=== PATIENT | male | born 1970 | race Caucasian/White ===

== ENCOUNTER 2019-04-05 14:15 | Inpatient (IN) | payer OTHER ==
[~2019-04-05 14:15] MED LIST: Iopamidol-370 76% 500 ML 1 ML ONE
[2019-04-05 14:44] LABS: #Basophils 0.1 thou/uL (0.0-0.2); #Eosinphils 0.1 thou/uL (0.0-0.7); #Lymphocytes 1.4 thou/uL (1.20-3.40); #Monocytes 0.8 thou/uL (0.11-0.59); #Neutrophils 14.2 thou/uL (1.40-6.50); %Basophils 0.4 % (0.0-1.0); %Eosinophils 0.4 % (0.0-10.0); %Lymphocytes 8.2 % (21.0-51.0); %Monocytes 4.7 % (0.0-10.0); %Neutrophils 86.3 % (42.0-75.0); Hemoglobin 16.5 g/dL (14.0-18.0); Mean Corpuscular HGB CONC 33.8 g/dL (32.0-36.0); Mean Corpuscular Hemoglobin 34.1 pg (27.0-31.0); Mean Platelet Volume 8.2 fL (7.4-10.4); Platelet Count 257 thou/uL (130-400); RBC Distribution Width 12.4 % (11.5-14.5); Red Blood Cell (RBC) Count 4.85 mill/uL (4.70-6.10); White Blood Cell (WBC) Count 16.5 thou/uL (4.8-10.8)
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
[2019-04-05 15:08] LABS: ALT (SGPT) 24 U/L (8-55); AST (SGOT) 21 U/L (5-34); Albumin 4.5 g/dL (3.5-5.0); Alcohol Less than 10 mg/dL (Less than 10); Alkaline Phosphatase 80 U/L (40-110); Anion Gap 14 mmol/L (10-20); BUN (Urea Nitrogen) 15 mg/dL (8.9-20.6); Bilirubin, Total 0.4 mg/dL (0.2-1.2); Calc. Creatinine Clearance 0 mL/min (70-130); Calcium 9.7 mg/dL (7.8-10.44); Carbon Dioxide 23 mmol/L (22-29); Chloride 104 mmol/L (98-107); Estimated GFR-MDRD 61; Globulin 2.8 g/dL (2.4-3.5); Glucose 209 mg/dL (70-105); Lipase 26 U/L (8-78); Potassium 4.2 mmol/L (3.5-5.1); Protein, Total 7.3 g/dL (6.0-8.3); Sodium 137 mmol/L (136-145)
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
[2019-04-05 16:12] LABS: Bacteria/HPF None Seen HPF (None Seen); Bilirubin Negative (Negative); Blood, Urine Negative (Negative); Clarity Clear (Clear); Glucose, Urine (Dipstick) 50 mg/dL (Negative); Leukocyte Negative Leu/uL (Negative); Nitrite Negative (Negative); Protein, Urine (Dipstick) 30 mg/dL (Neg-Trace); RBC/HPF 0-3 HPF (0-3); Squamous Epithelial 0-3 HPF (0-3); Urobilinogen Normal mg/dL (Less than 2); WBC/HPF 0-3 HPF (0-3)
[2019-04-05 16:23] LABS: Troponin I Less than 0.010 ng/mL (< 0.028)
[2019-04-05] MEDS ORDERED: Acetaminophen 325 MG TAB PO PRN (18:36)
[2019-04-05] MEDS ORDERED: Acetaminophen 650 MG Suppository PR PRN (18:36)
[2019-04-05 18:43] LABS: Lactic Acid 2.2 mmol/L (0.5-2.2)
[2019-04-05 19:18] LABS: Troponin I Less than 0.010 ng/mL (< 0.028)
[2019-04-05 20:07] VITALS: BMI 24.5
[2019-04-05] MEDS ORDERED: Melatonin 3 MG TAB PO PRN (20:14)
[2019-04-05] MEDS ORDERED: traMADol HCl 50 MG TAB PO PRN (20:14)
[2019-04-05] MEDS ORDERED: Lorazepam 2 MG/ML VIAL ONE (20:27)
[2019-04-05 20:35] LABS: Medtox Reader # READER 4
[2019-04-05 20:36] LABS: Amphetamine Not Detected (NotDetected); Barbiturates Screen Not Detected (NotDetected); Benzodiazepine Screen Not Detected (NotDetected); Cocaine Metabolite Screen Not Detected (NotDetected); Medtox Control Line Valid? VALID (VALID); Methadone Not Detected (NotDetected); Methamphetamine Not Detected (NotDetected); Opiate Screen Not Detected (NotDetected); Oxycodone Screen Not Detected (NotDetected); Phencyclidine (PCP) Not Detected (NotDetected); THC/Cannabinoid Screen Detected (NotDetected); Tricyclic Screen Not Detected (NotDetected)
[2019-04-05] MEDS ORDERED: Lorazepam 2 MG/ML VIAL SLOW IVP PRN ×2 (20:38→20:40)
[2019-04-05] MEDS ORDERED: levETIRAcetam In NaCl (Iso-Os) 1,000 MG in Premix Bag 1 BAG IVPB SCH (21:00)
[2019-04-05] MEDS ORDERED: Lorazepam 1 MG TAB PO SCH (21:00)
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
[2019-04-05 21:26] LABS: Lactic Acid 18.5 mmol/L (0.5-2.2)
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
[2019-04-05] MEDS: Sodium Chloride 0.9% 1,000 ML IV SCH (22:21)
[2019-04-05] MEDS: levETIRAcetam 500 MG TAB PO SCH (22:21)
[2019-04-06 00:16] LABS: Troponin I 0.051 ng/mL (< 0.028)
[2019-04-06 00:49] VITALS: BP 142/82
[2019-04-06 04:55] LABS: #Basophils 0.1 thou/uL (0.0-0.2); #Eosinphils 0.1 thou/uL (0.0-0.7); #Lymphocytes 2.5 thou/uL (1.20-3.40); #Monocytes 1.1 thou/uL (0.11-0.59); %Basophils 0.4 % (0.0-1.0); %Eosinophils 0.6 % (0.0-10.0); %Lymphocytes 19.8 % (21.0-51.0); %Monocytes 8.9 % (0.0-10.0); %Neutrophils 70.4 % (42.0-75.0); Hemoglobin 14.3 g/dL (14.0-18.0); Mean Corpuscular HGB CONC 33.6 g/dL (32.0-36.0); Mean Corpuscular Hemoglobin 33.3 pg (27.0-31.0); Mean Corpuscular Volume 99.2 fL (78.0-98.0); Platelet Count 227 thou/uL (130-400); RBC Distribution Width 12.4 % (11.5-14.5); Red Blood Cell (RBC) Count 4.28 mill/uL (4.70-6.10); White Blood Cell (WBC) Count 12.8 thou/uL (4.8-10.8)
[2019-04-06 05:13] LABS: Anion Gap 13 mmol/L (10-20); BUN (Urea Nitrogen) 13 mg/dL (8.9-20.6); Calc. Creatinine Clearance 106 mL/min (70-130); Calcium 9.1 mg/dL (7.8-10.44); Carbon Dioxide 22 mmol/L (22-29); Chloride 110 mmol/L (98-107); Estimated GFR-MDRD 81; Glucose 97 mg/dL (70-105); Potassium 3.7 mmol/L (3.5-5.1); Sodium 141 mmol/L (136-145)
[2019-04-06] MEDS: Sodium Chloride 0.9% 1,000 ML IV SCH ×3 (05:44→20:34)
[2019-04-06] MEDS: levETIRAcetam 500 MG TAB PO SCH ×2 (08:40→20:30)
[2019-04-06] MEDS ORDERED: FLU VACC QS2019-20(6MOS UP)/PF 60 MCG/0.5 ML SYRINGE IM ONE (09:00)
[2019-04-06] MEDS ORDERED: Lorazepam 2 MG/ML VIAL SLOW IVP PRN (09:30)
[2019-04-06] MEDS ORDERED: Sodium Chloride 0.9% 1,000 ML IV SCH (09:30)
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
--- NOTE | 2019-04-06 09:47 | RAD ---
EXAM: 3 views of the left shoulder HISTORY: Shoulder pain COMPARISON: None FINDINGS: There is no evidence of acute fracture or dislocation. No degenerative changes are present. No soft tissue swelling is seen. The visualized thorax is unremarkable. IMPRESSION: No evidence of acute osseous abnormality.
[2019-04-06 10:49] LABS: Lactic Acid 0.9 mmol/L (0.5-2.2)
[2019-04-06] MEDS ORDERED: Cyclobenzaprine 10 MG TAB PO PRN (11:39)
[2019-04-06 12:44] LABS: Hemoglobin A1c 6.1 % (4.0-6.0)
[2019-04-06] MEDS ORDERED: diphenhydrAMINE 25 MG CAP PO PRN (21:44)
[2019-04-06] MEDS ORDERED: Acetaminophen 500 MG TAB PO PRN (21:51)
--- NOTE | 2019-04-06 22:55 | PDOC.HOSPP ---
- Subjective Encounter Date: 04/06/19 Encounter Time: 11:00 Subjective: Patient seen and examined for Syncope/seizure. No CP or SOB. No new complaints. No overnight events - Objective Vital Signs & Weight: Vital Signs (12 hours) Temp Pulse Ox 04/06/19 20:00 98 04/06/19 19:49 98.3 F Weight Weight 179 lb Most Recent Monitor Data Heart Rate from ECG 84 NIBP 122/77 NIBP BP-Mean 92 Respiration from ECG 19 SpO2 95 I&O: 04/05/19 04/06/19 04/07/19 06:59 06:59 06:59 Intake Total 907 1450 Output Total 400 Balance 507 1450 Result Diagrams: 04/07/19 03:36 04/06/19 04:16 EKG Reviewed by me: Yes (Tele SR) Hospitalist ROS - Review of Systems Respiratory: denies: cough, dry, shortness of breath, hemoptysis, SOB with excertion, pleuritic pain, sputum, wheezing, other Cardiovascular: denies: chest pain, palpitations, orthopnea, paroxysmal noc. dyspnea, edema, light headedness, other - Medication Medications: Active Medications Generic Name Dose Route Start Last Admin Trade Name Freq PRN Reason Stop Dose Admin Sodium Chloride 1,000 mls @ 100 mls/hr 04/06/19 11:44 04/06/19 20:34 Normal Saline 0.9% IV 1,000 mls .Q10H FREDDIE Administration Levetiracetam 500 mg 04/05/19 21:00 04/06/19 20:30 Keppra PO 500 mg BID FREDDIE Administration - Exam General Appearance: NAD Heart: RRR, no gallops Respiratory: CTAB, no rales Gastrointestinal: soft, non-distended Extremities: no edema Neurological: no new deficit Hosp A/P - Plan DVT proph w/SCDs Syncope Seizure Hyponatremia/Hypokalemia/Hypomagnesemia (POA) Type 2 MT (POA) h/o Migraine Cannabis abuse KAREN on CKD 2 Leucocytosis (POA) Lactic acidosis PCN allergy PLAN: Add IVF Cont Keppra Check folic acid/Vit B12 Replace electrolytes Cont other meds
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
[2019-04-07 04:43] LABS: Cardiac Risk 6.3 (Less than 4.5)
[2019-04-07 04:47] LABS: Troponin I Less than 0.010 ng/mL (< 0.028)
[2019-04-07 05:20] LABS: #Basophils 0.1 thou/uL (0.0-0.2); #Eosinphils 0.2 thou/uL (0.0-0.7); #Lymphocytes 2.3 thou/uL (1.20-3.40); #Monocytes 0.8 thou/uL (0.11-0.59); #Neutrophils 5.2 thou/uL (1.40-6.50); %Lymphocytes 26.6 % (21.0-51.0); %Monocytes 9.3 % (0.0-10.0); %Neutrophils 61.1 % (42.0-75.0); Hemoglobin 13.5 g/dL (14.0-18.0); Mean Corpuscular HGB CONC 33.4 g/dL (32.0-36.0); Mean Corpuscular Volume 98.7 fL (78.0-98.0); Mean Platelet Volume 8.4 fL (7.4-10.4); Platelet Count 222 thou/uL (130-400); RBC Distribution Width 12.3 % (11.5-14.5); Red Blood Cell (RBC) Count 4.11 mill/uL (4.70-6.10); White Blood Cell (WBC) Count 8.6 thou/uL (4.8-10.8)
[2019-04-07] MEDS ORDERED: Cyanocobalamin 1000 MCG/ML VIAL IM SCH (09:45)
--- NOTE | 2019-04-07 14:02 | NM ---
Nuclear medicine Cardiac myocardial perfusion SPECT Ejection fraction study Wall motion cine: DATE:04/07/2019 12:00 AM INDICATION: Chest pain TECHNIQUE: Number of days:2 Rest Study: Technetium 99m-sestamibi (Cardiolite) dose:9.0 mCi Stress study: Technetium 99m-sestamibi (Cardiolite) dose:28.3 mCi FINDINGS: Cardiac (myocardial perfusion) SPECT There are no reversible myocardial perfusion defects. Ejection fraction study Left ventricular EF = 67% Wall motion cine Normal wall motion and thickening IMPRESSION: No evidence of reversible myocardial ischemia.
[2019-04-07] MEDS: levETIRAcetam 500 MG TAB PO SCH ×2 (14:46→20:50)
[2019-04-07] MEDS: Sodium Chloride 0.9% 1,000 ML IV SCH (16:56)
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
[2019-04-07] MEDS: Folic Acid 1 MG TAB PO SCH (20:50)
[2019-04-08] MEDS: Sodium Chloride 0.9% 1,000 ML IV SCH ×2 (06:15→09:48)
[2019-04-08] MEDS ORDERED: Lidocaine 1% w/Epinephrine 1:100K 20 ML VIAL ONE ×2 (07:44→07:47)
[2019-04-08] MEDS ORDERED: Cyanocobalamin (Vitamin B-12) 1,000 MCG TAB PO SCH (09:00)
--- NOTE | 2019-04-08 09:16 | PDOC.HOSPP ---
- Subjective Encounter Date: 04/07/19 Encounter Time: 18:00 Subjective: Patient seen and examined for syncope/seizure. No syncope/seizure. No new complaints. No overnight events - Objective Vital Signs & Weight: Vital Signs (12 hours) Temp Pulse Ox 04/08/19 07:46 100 04/08/19 03:55 99.2 F 04/07/19 23:33 98.1 F Weight Weight 179 lb Most Recent Monitor Data Heart Rate from ECG 74 NIBP 137/86 NIBP BP-Mean 103 Respiration from ECG 22 SpO2 99 I&O: 04/07/19 04/08/19 04/09/19 06:59 06:59 06:59 Intake Total 2850 Balance 2850 Result Diagrams: 04/07/19 03:36 04/06/19 04:16 EKG Reviewed by me: Yes (Tele SR) Hospitalist ROS - Review of Systems Respiratory: denies: cough, dry, shortness of breath, hemoptysis, SOB with excertion, pleuritic pain, sputum, wheezing, other Cardiovascular: denies: chest pain, palpitations, orthopnea, paroxysmal noc. dyspnea, edema, light headedness, other - Medication Medications: Active Medications Generic Name Dose Route Start Last Admin Trade Name Freq PRN Reason Stop Dose Admin Folic Acid 1 mg 04/07/19 21:00 04/07/19 20:50 Folvite PO 1 mg BID FREDDIE Administration Sodium Chloride 1,000 mls @ 100 mls/hr 04/06/19 11:44 04/08/19 06:15 Normal Saline 0.9% IV 1,000 mls .Q10H FREDDIE Administration Levetiracetam 500 mg 04/05/19 21:00 04/07/19 20:50 Keppra PO 500 mg BID FREDDIE Administration Melatonin 3 mg 04/05/19 20:14 04/07/19 22:12 Melatonin PO 3 mg HSPRN PRN Administration Insomnia - Exam General Appearance: NAD Heart: RRR, no gallops Respiratory: CTAB, no rales Gastrointestinal: soft, non-tender, normal bowel sounds Extremities: no edema Hosp A/P - Plan DVT proph w/SCDs Syncope Seizure Hyponatremia/Hypokalemia/Hypomagnesemia (POA) Type 2 OR (POA) Folic acid/Vit B12 def h/o Migraine Cannabis abuse KAREN on CKD 2 Leucocytosis (POA) Lactic acidosis PCN allergy PLAN: Cont Keppra Replace folic acid/Vit B12 Replace electrolytes Cont other meds ?Loop recorder Await Neuro input Cardio input
[2019-04-08] MEDS: levETIRAcetam 500 MG TAB PO SCH (09:47)
[2019-04-08] MEDS: Folic Acid 1 MG TAB PO SCH (09:47)
--- NOTE | 2019-04-08 09:50 | EEG ---
Referring Physician: FARIHA EEG # [id number] TEST TYPE: ROUTINE PORTABLE INPATIENT REPORT: AN EEG USING THE INTERNATIONAL TEN-TWENTY SYSTEM OF ELECTRODE PLACEMENT WAS PERFORMED. The waking background is a 9 hertz occipitally dominant alpha frequency. There are some occasional, irregular dysrhythmic appearing activity seen over both hemispheres. The patient entered a drowsy state. Photic stimulation and hyperventilation were unremarkable. No epileptiform features were seen. IMPRESSION: THIS IS A BORDERLINE ABNORMAL EEG FOR THE FINDINGS OF SOME NONSPECIFIC DYSRHYTHMIC ACTIVITY OF QUESTIONABLE SIGNIFICANCE. CLINICAL CORRELATION IS INDICATED. Construction Worker: ANGELIA Extruding Press Operator: [email or web address] FRIAS
--- NOTE | 2019-04-08 13:17 | PRG ---
DATE OF SERVICE: 04/08/2019 SUBJECTIVE: Mr. Gordillo is doing well, had a LINQ implant today. No complaints. OBJECTIVE: VITAL SIGNS: Blood pressure 125/70, pulse 63 and regular. LUNGS: Clear. CARDIAC: Normal S1 and normal S2. ASSESSMENT: 1. Loss of consciousness. 2. Right axis deviation. 3. Bifascicular block during a seizure. PLAN: A LINQ was placed. He will see a primary rotary soil stabilizer in [place]. He is on seizure medicines as well. Job ID: [id number]
[2019-04-08 13:57] VITALS: TEMP 98.1
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
== END 2019-04-08 15:36 | disposition home or self-care (01) | DRG 40 ==
LOC: ERS 14:15 → 2SW 19:31 → OBSVTOIN 19:31 → IMCU/EMU 20:43
PROVIDERS: ADMIT Hospitalist; ATTEND Hospitalist
PROC: 0JH632Z Insertion of Monitoring Device into Chest Subcutaneous Tissue and Fascia, Percutaneous Approach (ICD-10-PCS; principal; 2019-04-08)
DX: R56.9 Unspecified convulsions (principal); I21.A1 Myocardial infarction type 2; E87.1 Hypo-osmolality and hyponatremia; N17.9 Acute kidney failure, unspecified; E87.2 Acidosis; R55 Syncope and collapse; G43.909 Migraine, unspecified, not intractable, without status migrainosus; F17.210 Nicotine dependence, cigarettes, uncomplicated; F12.10 Cannabis abuse, uncomplicated; R47.02 Dysphasia; N18.2 Chronic kidney disease, stage 2 (mild); I49.9 Cardiac arrhythmia, unspecified; D72.829 Elevated white blood cell count, unspecified; I45.10 Unspecified right bundle-branch block; E83.42 Hypomagnesemia; E87.6 Hypokalemia; V49.9XXA Car occupant (driver) (passenger) injured in unspecified traffic accident, initial encounter; Z88.0 Allergy status to penicillin
CPT/HCPCS: 33285; 36415; 36416; 70450; 71046; 71275; 72125; 74177; 78452; 80048; 80053; 80061; 80306; 80307; 81003; 81015; 82607; 82746; 83036; 83605; 83690; 83735; 84145; 84146; 84484; 85025; 86850; 86900; 86901; 93005; 93010; 93017; 93306; 95816; 95819; 96360; 96361; A9500; C1764; G0390; J1953; J2060; J3420; Q9967